=== PATIENT | male | born 1985 | race Caucasian/White ===

== ENCOUNTER 2025-04-18 20:30 | Emergency (ER) | payer OTHER, SELFPAY ==
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
--- OUTSIDE RECORDS SUMMARY | 2025-04-10 09:40 | XMS_ITS | Encounter Summary ---
Author Organization [employer] Address [address], [place] [address] Care Team Providers Care Reimbursement Auditor Name Role Phone No Primary/Referring, Phy Primary Care Provider Unavailable Reason for Referral * Procedure/Equipment (Routine) - New Request Specialty Diagnoses / Procedures Referred By Contac t Referred To Contact Diagnoses Sprain of posterior cruciate ligament of left knee, subsequent encounter Lj Irizarry MD [address] [place] [id number] Phone: tel: fax: POS NOT ON FILE Referral ID Status Reason Start Date Expiration Date V isits Requested Visits Authorized [id number] New Request 04/10/2025 10/07/2025 1 1 Scheduling Instructions If scheduling assistance is needed, please inquire with the medical office staff upon exiting your appointment or contact the ordering clinic for recommended locations. This recommended service/s may not be covered by your insurance coverage. To find out your specific benefit coverage, please call the number on your insurance card. [facility] LOCATIONS: FOR[facility]LY [facility] [address], [address] - [place] [address] - Toll Free: [phone] - [facility] [address] [place] [address], [address] [place] [address] - Toll Free: [phone] - [place] [address] [place] [address] - Toll Free: [phone] - d [facility] OUT[facility] ([facility]) Wednesdays and Fridays [address] 3rd [place] [address] - [facility] ([place]) Fridays [address] [place] [address] - [facility] ([facility] Mondays [address] [place] [address] - [facility] [address] [place] [place] [address] - [facility] - PT DEPARTMENT ([place], [place]) Tuesdays [address] [place] [address] - Phone: [facility] - PT DEPARTMENT ([place], [place]) [address] [place] [address] [place] [address] - Phone: [facility] - PT DEPARTMENT ([place], [place]) [address] [place] [address] - Phone: [facility] Main Floor [address] [place] [address] - Phone: Question Answer Direct patient to which orthotic vendor? [facility] needed? Brace - Rebound PCL brace Comments Rebound PCL brace. PCL instability. Reason for Visit * Reason Comments Follow-up Encounter Details Date Type Department Care Team (Latest Contact Info) Description 04/10/2025 9:40 AM CDT Office Visit [facility] [address] [place] [address] Lj Irizarry MD [address] [place] [phone] Sprain of medial collateral ligament of left knee, subsequent encounter (Primary Dx); Other tear of lateral meniscus of left knee as current injury, subsequent encounter; Other tear of medial meniscus of left knee as current injury, subsequent encounter; Sprain of posterior cruciate ligament of left knee, subsequent encounter; S/P ACL reconstruction Social History Tobacco Use Types Packs/Day Years [...] on file documented as of this encounter Patient Instructions * Patient Instructions* Florentin Yen - 04/10/2025 9:40 AM CDT Thank you for choosing [facility] for your health care visit today. Please read the contents below for important information regarding today's appointment. Medication Requests: Prescriptions are not filled on weekends or on weekdays after 3:00 PM. For all medication refills: Request a refill using [employer] or contact your pharmacy. Radiology/MRI Scheduling: To schedule an MRI at [facility] please call [phone]. For [facility] please call [phone]. For [facility] please call [phone]. For [facility] please call [phone]. For [facility] please call [phone]. For [facility] please call [phone] Medical Records/Imaging Requests: For Medical Records please call [phone]. For Images (CD) please call [phone]. [facility] Workers' Compensation [address] [place], [place] [address] (Phone) What is Know Your Cost? Know Your Cost is a service for patients and patient/members to call and receive personalized cost information and estimates across our care group. The phone number is (COST) and is open Thursday - Thursday from 8 a.m[address] to [address] Lj Irizarry MD Sports Medicine & Orthopedic Surgery [facility] Thursday and Thursday Paperwork Requests/Questions Regarding Surgery Scheduling: All paperwork takes up to 10 business days to complete. Supervisor [employer] Production: Danelle Fontana Navigator: Bernardo Vargas ATC Diagnosis: Diagnosis and Associated Orders ICD-10-CM 1. Sprain of medial collateral ligament of left knee, subsequent encounter S83.412D 2. Other tear of lateral meniscus of left knee as current injury, subsequent encounter S83.282D 3. Other tear of medial meniscus of left knee as current injury, subsequent encounter S83.242D 4. S/P ACL reconstruction Z98.890 Injection Today: No Plan: PCL brace ordered Physical therapy Follow-Up: 8 weeks documented in this encounter Progress Notes * Lj Irizarry MD - 04/10/2025 9:40 AM CDT Images from the original note were not included. ORTHOPAEDIC FOLLOW UP NOTE DATE OF SERVICE: 04/10/2025 CHIEF COMPLAINT: Follow up left knee PREVIOUS DIAGNOSIS: High-grade, partial tearing of the proximal MCL. 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 HISTORY OF PRESENT ILLNESS Richard Wolfe is a 39 y.o. old male who is here for follow up examination of the left knee. The recommended treatment at his previous visit was MCL bracing. Today, he presents reporting continued instability with activity. He denies having pain a rest but does have pain when he stresses his knee. He started PT last week. He continues to express interest in avoiding surgery. He has not been wearing his brace. He reports that he had issues with it sliding down consistently. Previous Injection: no Helpful? N/A Previous Physical Therapy: yes, 1 visit Helpful? unknown PHYSICAL EXAMINATION LEFT KNEE Inspection: Skin normal in appearance with well healed surgical incision, no erythema/induration/ecchymosis, effusion is absent Palpation: Medial joint line is tender along with the medial aspect of the MFC and to a lesser extent the anteromedial proximal tibia, lateral joint line is nontender Motor: 5/5 quad strength, 5/5 hamstrings, 5/5 anterior tibialis, 5/5 gastrocsoleus Sensory: Sensation intact to light touch throughout all dermatomes Vascular: Warm and well perfused Stability: Valgus stress at 30?? grade 2 instability which resolves at 0??, stable to varus stress at 0 and 30??, anterior drawer and Mikey's stable, posterior drawer grade II ROM: 0-120?? knee without crepitance, painless hip ROM Patella: ~1 quadrants of med/lat patellar mobility, no evidence of J-tracking, negative grind Provocative tests: Aston's is negative IMAGING: Multiple views of the left knee dated 12/15/24 were available for my independent interpretation in our PACS system and demonstrate no evidence of fracture or dislocation. Joint spaces are well-maintained. An MRI of the left knee dated 12/30/24 was available for my independent interpretation in our PACS system and demonstrates evidence of a small radial tear of the medial meniscal body region. There is also a small radial tear of the lateral meniscus posterior horn. There is a small area of deep, partial- thickness chondromalacia involving the posterior weight-bearing lateral femoral condyle. There isevidence of an ACL reconstruction. The ligament is intact. There is attenuation of the PCL midsubstance and proximally consistent with a previous injury. There is high-grade, partial tearing of the proximal MCL. ASSESSMENT & PLAN Richard Wolfe is a 39 y.o. old male with complaints of predominantly medial- sided left knee pain. His imaging demonstrates evidence of high-grade, partial tearing of the proximal MCL. 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 I had a long discussion with the patient regarding the status of his left knee. I again recommendedMCL bracing as I do not see signs of significant healing in the MCL today. He has not been consistently wearing his brace. Additionally, his exam is more revealing today of instability in the PCL region. This could have an impact on the overall function of the knee. We also discussed a PCL brace. An order was placed for a PCL brace today. This should also provide support for MCL healing. He will recommend to PT. he has a very active individual in his anxious to get back to his previous level ofactivity. In its current state, he does not feel the knee can tolerate this. He will follow up in the clinic 8 weeks. All of his questions were answered today. He verbalized understanding of his diagnosis and was in agreement with the treatment plan. If he has any further questions or concerns, he is to contact the office. MEDICAL HISTORY I reviewed PAST MEDICAL & SURGICAL HISTORY, PROBLEM LIST, SOCIAL HISTORY and FAMILY HISTORY in EPIC today. No Known Allergies This note was created using a scribe, templating, and voice recognition software ([employer]) which may result in unintentional word substitutions. This document serves as a record of all services personally provided by Lj Irizarry MD. Documentation provided by Bernardo Yen based on my personal observation of the services provided and the providers statements to me. Approximately 20 minutes were spent upon this patient. Lj Irizarry MD documented in this encounter Plan of Treatment Upcoming Encounters Date Type Department Care Team (Late st Contact Info) Description 04/21/2025 4:15 PM CDT Appointment [facility] Physical Therapy [address] [place] [phone] Magui Ruiz, PT [address] [place] [phone] 05/05/2025 8:00 AM CDT Appointment [facility] Physical Therapy [address] [place] [phone] Magui Ruiz, PT [address] [place] [id number] 06/05/2025 8:40 AM COST SPECIALIST Appointment [facility] Orthopedic [facility] [address] [place], [place] [phone] Lj Irizarry MD [address] [place] [phone] Scheduled Referrals Name Type Priority Associated Diagnoses Orde r Schedule [facility] Referral Routine Sprain of posterior cruciate ligament of left knee, subsequent encounter Ordered: 04/10/2025 documented as of this encounter Visit Diagnoses Diagnosis Sprain of medial collateral ligament of left knee, subsequent encounter- Primary Other tear of lateral meniscus of left knee as current injury, subsequent encounter Other tear of medial meniscus of left knee as current injury, subsequent encounter Sprain of posterior cruciate ligament of left knee, subsequent encounter S/P ACL reconstruction Other postprocedural status documented in this encounter Care Teams Reimbursement Auditor Relationship Specialty Start Date End Date No Primary/Referring, Phy PCP - General 01/28/23 documented as of this encounter
--- OUTSIDE RECORDS SUMMARY | 2025-04-18 20:32 | XMS_ITS | Clinical Summary ---
Author Organization [facility] Address [address] [place] [address] Care Team Providers Care Baggage And Mail Agent Name Role Phone No Primary/Referring, Phy Primary Care Provider Unavailable Source Comments You are receiving this document as you are listed as the primary care provider,follow-up provider, or the patient has been referred to you for consultation.This is in compliance with the Medicare and[facility] E[facility]centive [facility],which states Providers who transition their patient to another setting of careor provider of care or refers their patient to another provider of care shouldprovide summary care record for each transition of care or referral. ADOP Allergies No known active allergies Medications hydrOXYzine HCl (ATARAX) 25 MG tablet Take 1-2 Tablets (25-50 mg) by mouth every 6 hours as needed for Itching. 20 Tablet 01/30/20 Active Additional Information Patient not taking.Reported on 12/16/2024 EPINEPHrine (EPIPEN) 0.3 MG/0.3ML injection Inject 0.3 mL (0.3 mg) intramuscularly as needed. May repeat. 2 Each 11 10/24/19 Active Additional Information Patient not taking.Reported on 12/16/2024 ibuprofen (MOTRIN) 800 MG tablet Take 1 Tablet (800 mg) by mouth every 8 hours as needed for Pain. Active diclofenac (VOLTAREN) 50 MG enteric coated tabletIndicati ons:Acute right-sided low back pain without sciatica,Acute pain of left knee Take 1 Tablet (50 mg) by mouth two times daily as needed. Take with food. 30 Tablet 12/17/19 Active methocarbamol (ROBAXIN) 500 MG tabletIndicati ons:Acute right-sided low back pain without sciatica,Acute pain of left knee Take 1 Tablet (500 mg) by mouth three times a day as needed (muscle pain). 30 Tablet 12/17/19 25 Active Active Problems Problem Noted Date Diagnosed Date Opioid type dependence, episodic abuse 9 Encounters Date Type Department Care Team Description 04/10/2025 9:40 AM CDT Office Visit [facility] [address] [place] [address] Lj Irizarry MD Sprain of medial collateral ligament of left knee, subsequent encounter (Primary Dx); Other tear of lateral meniscus of left knee as current injury, subsequent encounter; Other tear of medial meniscus of left knee as current injury, subsequent encounter; Sprain of posterior cruciate ligament of left knee, subsequent encounter; S/P ACL reconstruction 04/03/2025 1:15 PM CDT Therapy [facility] [address] [place] [phone] Magui Ruiz, PT Acute pain of left knee (Primary Dx) from Last 3 Months Social History Tobacco Use Types Packs/Day Years Used Date Smoking Tobacco: Never Tobacco Cessation:Counseling Given: Not Answered Alcohol Use Standard Drinks/Week Comments Yes 0 [...] on file Sexual Orientation Not on file Last Filed Vital Signs Vital Sign Reading Time Taken Comments Blood Pressure 127/92 12/15/2024 3:30 PM CDT Pulse 82 12/15/2024 3:30 PM CDT Temperature 36.6 C (97.8 F) 12/16/2024 1:12 PM CDT Respiratory Rate 17 12/15/2024 3:19 PM CDT Oxygen Saturation 98% 12/15/2024 3:30 PM CDT Inhaled Oxygen Concentration - - Weight 74.8 kg (165 lb) 12/16/2024 1:12 PM CDT Height 175.3 cm (5' 9) 12/16/2024 1:12 PM CDT Body Mass Index 24.37 12/16/2024 1:12 PM CDT Plan of Treatment Upcoming Encounters Date Type Department Care Team (Late st Contact Info) Description 04/21/2025 4:15 PM CDT Appointment [facility] [address] [place] [phone] Magui Ruiz, PT [address] [phone] 05/05/2025 8:00 AM CDT Appointment [facility] [address] [place] [phone] Magui Ruiz, PT [address] [phone] 06/05/2025 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 Appointment [facility] [address] [place] [address] Lj Irizarry MD [address] [phone] Health Maintenance Due Date Last Done Comments Hep C Screening (Preventive Services) 1984 HIV Screening (Preventive Services) 2000 Adult Preventive Visit 2002 HepB Vaccine (1) 2003 HPV Vaccine (1 - 3-dose SCDM series) 2011 Cholesterol 2019 COVID-19 Vaccine ( - 2023-2 5 season) 2025 Influenza Vaccine (#1) 2025 DTaP/Tdap/Td Vaccine (2 - Tdap) 02/13/2026 6 Zoster/Shingles Vaccine (1 of 2) 2034 HepA Vaccine Aged Out No longer eligi ble based on patient's age to complete this topic Hib Vaccine Aged Out No longer eligi ble based on patient's age to complete this topic IPV (Polio) Vaccine Aged Out No longe r eligible based on patient's age to complete this topic MCV4 Vaccine Aged Out No longer eligi ble based on patient's age to complete this topic Meningococcal B Vaccine Aged Out No l onger eligible based on patient's age to complete this topic Pneumococcal Vaccine Aged Out No long er eligible based on patient's age to complete this topic Insurance [employer] Care Teams Baggage And Mail Agent Relationship Specialty Start Date End Date No Primary/Referring, Phy PCP - General 01/28/23
[2025-04-18 20:35] VITALS: BP 144/117; PULSE 94; RESP 18; TEMP 36.7; O2SAT 90; BMI 24.8
--- NOTE | 2025-04-18 21:10 | CRLHL7_ITS ---
For Patients: As a result of the Century Cures Act, medical imaging exams and procedure reports are released immediately into your electronic medical record. You may view this report before your referring provider. If you have questions, please contact your health care provider. Indication: Shortness of breath. Technique: Chest two views. Comparison: Chest x-ray 03/15/2025. Findings/Impression: The heart is not abnormally enlarged. Mediastinal contours are grossly within normal limits. No confluent airspace opacity is appreciated. No pleural effusion or pneumothorax. No acute osseous abnormality. Dictated by Elieser Davidson MD @ 04/18/2025 9:43:01 PM (Electronically Signed)
--- NOTE | 2025-04-18 21:14 | ED.SOB ---
HPI - SOB/Dyspnea General Time Seen by Provider: 21:14 Date Seen: 04/18/25 Chief Complaint: Shortness of Breath/Dyspnea Stated Complaint: breathing problems Time Seen by Provider: 04/18/25 21:14 Source: patient Mode of arrival: ambulatory History of Present Illness HPI Narrative: Richard is a 39-year-old male with no significant past medical history who presents to the emergency department for evaluation of shortness of breath. Patient complains of cough, shortness of breath, wheezing that started approximately 36 hours ago. Patient reports he does smoke marijuana, states that he did [employer] on we can. Patient reports dry hacking cough, wheezing, and shortness of breath due to coughing episodes. Patient states otherwise he does not feel sick with cold/flu-like symptoms. Denies any fever, chills, rhinorrhea/stuffy nose, abdominal pain, nausea, vomiting, no sick contacts. No other complaints. Related Data Previous Rx's ?Medication ?Instructions ?Recorded albuterol sulfate 90 mcg/actuation 2 puff inhalation Q4-6H PRN 03/15/25 aerosol inhaler shortness of breath or wheezing #6.7 grams Allergies Allergy/AdvReac Type Severity Reaction Status Date / Time No Known Drug Allergies Allergy Verified 03/15/25 14:32 Review of Systems Narrative: Past medical history, past surgical history, medications, allergies, family history, and social history were reviewed with the patient. No additional pertinent items. A medically appropriate review of systems was performed with pertinent positives and negatives noted in HPI, all other systems negative. [facility] Social History Smoking Status: Current every day smoker What tobacco products do you use: cigarettes Do you use any of these nicotine containing products: Other Second hand tobacco smoke exposure: No How often do you have a drink containing alcohol: monthly or less How often do you have six or more drinks on one occasion: Never AUDIT-C Alcohol total score: 1 Non-prescribed substance use: denies use service: No Exam Narrative: Exam Narrative: General: Afebrile, in distress 2/2 to coughing episode HEENT: Normocephalic, atraumatic, conjunctiva normal. MMM Neck: non-tender, supple Cardio: regular rate. regular rhythm Resp: Lungs with diffuse wheezing, +respiratory distress 2/2 to coughing episode Chest/Back: no visual signs of trauma, no midline tenderness, no CVA tenderness Abdomen: soft, non distension, no tenderness, no peritoneal signs Neuro: alert and fully oriented. CN II-XII grossly intact. Grossly normal strength and sensation in all extremities. MSK: no deformities. Normal range of motion Integumentary/Skin: no rash visualized, normal color Psych: normal affect, normal behavior Const: Vital Signs, click to edit/add: Vital Signs - 24 hr 04/18/25 20:35 04/18/25 21:44 04/18/25 21:45 Temperature 98.1 F Pulse Rate 87 80 Pulse Rate [Right Pulse Oximeter] 94 Respiratory Rate 18 Blood Pressure 123/72 Blood Pressure [Ri ght Upper Arm] 144/117 H Pulse Oximetry 90 93 93 Oxygen Delivery Me thod Room Air 04/18/25 22:00 04/18/25 22:15 04/18/25 22:28 Temperature Pulse Rate 81 84 Pulse Rate [Right Pulse Oximeter] 87 Respiratory Rate Blood Pressure Blood Pressure [Ri ght Upper Arm] Pulse Oximetry 94 92 95 Oxygen Delivery Me thod Room Air Course Vital Signs Vital signs: Initial Vital Signs Temperature 98.1 F 04/18/25 20:35 Temperature Source Temporal Artery Scan 04/18/25 20:35 Pulse Rate 94 04/18/25 20:35 Respiratory Rate 18 04/18/25 20:35 Blood Pressure 144/117 H 04/18/25 20:35 Blood Pressure Mean 126 H 04/18/25 20:35 Blood Pressure Position Sitting 04/18/25 20:35 Pulse Oximetry 90 04/18/25 20:35 Oxygen Delivery Method Room Air 04/18/25 20:35 Vital Signs Temperature 98.1 F 04/18/25 20:35 Pulse Rate 94 04/18/25 20:35 Respiratory Rate 18 04/18/25 20:35 Blood Pressure 144/117 H 04/18/25 20:35 Pulse Oximetry 90 04/18/25 20:35 Oxygen Delivery Method Room Air 04/18/25 20:35 Temperature 98.1 F 04/18/25 20:35 Pulse Rate 87 04/18/25 22:28 Respiratory Rate 18 04/18/25 20:35 Blood Pressure 123/72 04/18/25 21:44 Pulse Oximetry 95 04/18/25 22:28 Oxygen Delivery Method Room Air 04/18/25 22:28 Medications Administered Medications: Discontinued Medications Generic Name Dose Route Start Last Admin Trade Name Shayne PRN Reason Stop Dose Admin Prednisone 60 mg 04/18/25 21:25 04/18/25 21:40 Prednisone 20 Mg Tablet PO 04/18/25 21:26 60 mg ONCE ONE Administration MDM - SOB/Dyspnea MDM Narrative Medical decision making narrative: Richard is a 39-year-old male with no significant past medical history who presents to the emergency department for evaluation of shortness of breath. Upon arrival patient is ill but nontoxic appearing, afebrile, in distress secondary to coughing episodes. Differential diagnosis includes but is not limited to viral illness versus pneumonia versus COPD versus asthma versus inflammatory versus pneumonitis versus bronchitis among others. Patient is slightly hypertensive upon arrival 144/117, no tachycardia cardiac rate 94, sat 90% on room air. Patient was treated with DuoNeb x2 upon arrival, prednisone. Will plan for viral testing, chest x-ray, re-evaluation. Viral testing negative for COVID/influenza/RSV. I personally reviewed interpreted chest x-ray which is unremarkable with no evidence of focal infiltrate, pleural effusion, pneumothorax. Suspect likely inflammatory. On re-evaluation patient resting comfortably, improvement of vitals with blood pressure 123/72, heart rate 87, oxygen 95% on room air. Patient with significant improvement of symptoms, discussed results with patient, consider observation however with improvement of symptoms, patient feels comfortable discharge home. Plan for discharge with close outpatient follow-up. Will discharge with albuterol inhaler, 5 day course of prednisone. At this time no emergent indication for antibiotics. Encourage close outpatient follow-up and strict return precautions discussed. Patient understands and agrees the plan. Medical Records Attestation: I reviewed the patient's medical records. Lab Data Labs: Lab Results 04/18/25 Range/Units 20:35 SARS-CoV-2 (PCR) Negative SARS-CoV-2 (Negative) Influenza Type A (PCR) Negative PCR FLU A (Negative) Influenza Type B (PCR) Negative PCR FLU B (Negative) RSV (PCR) Negative PCR RSV (Negative) Imaging Data Chest x-ray: Radiologist's impression: Indication: Shortness of breath. Technique: Chest two views. Comparison: Chest x-ray 03/15/2025. Findings/Impression: The heart is not abnormally enlarged. Mediastinal contours are grossly within normal limits. No confluent airspace opacity is appreciated. No pleural effusion or pneumothorax. No acute osseous abnormality. Discharge Plan Discharge Clinical Impression: Cough, Shortness of breath Patient Disposition: Home, Self-Care Condition: Improved Instructions: Acute Bronchitis (ED) Additional Instructions: Please follow-up with your primary care provider in the next 3-5 days for further evaluation and follow-up. Please call to schedule appointment. Please continue old medications. You may take Tylenol or ibuprofen as needed for fever, pain. Please take steroids daily as directed for the next 5 days. Please take inhaler 1-2 puffs every 4-6 hours as needed for shortness of breath, cough, wheezing. Please avoid any marijuana use. Please return to the emergency department if you develop high fever, chest pain, shortness of breath, for any worsening symptoms. It was a pleasure taking care of you today. We hope you have a great week. Prescriptions: No Action albuterol sulfate 90 mcg/actuation HFA aerosol inhaler 2 puff inhalation Q4-6H PRN (Reason: shortness of breath or wheezing) Qty: 6.7 0RF Follow Up/Referrals: Provider,Not a Local [Primary Care Provider, Family Practice] Stand Alone Forms: Collective IP Info Instructions
[2025-04-18 21:28] LABS: PCR FLU A Negative PCR FLU A (Negative); PCR FLU B Negative PCR FLU B (Negative); PCR RSV Negative PCR RSV (Negative); SARS PCR* Negative SARS-CoV-2 (Negative)
[2025-04-18 21:44] VITALS: BP 123/72; PULSE 87; O2SAT 93
[2025-04-18 21:45] VITALS: PULSE 80; O2SAT 93
[2025-04-18 22:00] VITALS: PULSE 81; O2SAT 94
[2025-04-18 22:15] VITALS: PULSE 84; O2SAT 92
[2025-04-18 22:28] VITALS: PULSE 87; O2SAT 95
== END 2025-04-18 22:36 | disposition home or self-care (01) ==
PROVIDERS: Emergency Provider Emergency Medicine
DX: R06.02 Shortness of breath (principal); R05.9 Cough, unspecified
CPT/HCPCS: 71046; 87631; 99283; 99284; 99285; J7512